=== PATIENT | female | born 1995 | race Caucasian/White ===

== ENCOUNTER 2023-09-20 18:29 | Emergency (ER) | payer OTHER ==
[2023-09-20 18:51] VITALS: BP 121/67; PULSE 84; RESP 18; TEMP 98; BMI 27.8
[2023-09-20] MEDS ORDERED: FLUORESCEIN NA 1 EA STRIP ONE (19:28)
[2023-09-20] MEDS: TETRACAINE 0.5% HCL 0.6ML DROPPER.BOTTLE OD ONE (19:43)
[2023-09-20] MEDS ORDERED: ERYTHROMYCIN 0.5% OPHTHALMIC OINTMENT 3.5 GM TUBE ONE (19:44)
[2023-09-20] MEDS: ERYTHROMYCIN 0.5% OPHTHALMIC OINTMENT 3.5 GM TUBE OS SCH (19:47)
== END 2023-09-20 19:47 | disposition home or self-care (01) ==
LOC: JERFT 18:29
DX: S05.02XA Injury of conjunctiva and corneal abrasion without foreign body, left eye, initial encounter (principal); W50.0XXA Accidental hit or strike by another person, initial encounter
CPT/HCPCS: 99283-25

== ENCOUNTER 2023-10-26 08:11 | Inpatient (IN) | payer OTHER ==
[2023-10-26 08:20] VITALS: BMI 26.5
[2023-10-26 09:14] LABS: BASO % 0.2 % (0-2.0); EOS % 0.1 % (0-4.5); HEMATOCRIT 41.9 % (32.4-45.2); LYMPH % 8.3 % (8-40); MCH 32.2 pg (25.7-33.7); MCHC 33.5 g/dl (32.0-36.0); MEAN CELL VOLUME 96.1 fl (80-96); MEAN PLT VOLUME 8.2 fl (7.5-11.1); MONO % 9.1 % (3.8-10.2); NEUT % 82.3 % (42.8-82.8); PLATELET COUNT 238 10^3/uL (134-434); RBC 4.36 M/mm3 (3.60-5.2); RDW 12.6 % (11.6-15.6); WHITE BLOOD COUNT 17.6 K/mm3 (4.0-10.0)
[2023-10-26 09:21] LABS: INR 1.2 (0.83-1.09); PROTHROMBIN TIME (PATIENT) 13.5 SEC (9.7-13.0)
[2023-10-26 09:24] LABS: ACTIVATED PTT 27.5 SECONDS (25.2-36.5)
[2023-10-26 09:38] LABS: POTASSIUM 3.7 mmol/L (3.5-5.1)
[2023-10-26 09:39] LABS: CALCIUM 9.3 mg/dL (8.5-10.1)
[2023-10-26 09:40] LABS: ALBUMIN 3.3 g/dl (3.4-5.0); BLOOD UREA NITROGEN 7.5 mg/dL (7-18)
[2023-10-26 09:40] LABS: VENOUS BASE EXCESS -2.2 mmol/L (-2-2); VENOUS O2 SATURATION 69.6 % (70-80); VENOUS PH 7.402 (7.310-7.410)
[2023-10-26 09:43] LABS: CREATININE 0.6 mg/dL (0.55-1.3)
[2023-10-26 09:45] LABS: BILIRUBIN,TOTAL 0.7 mg/dL (0.2-1); TOT PROT 7.2 g/dl (6.4-8.2)
[2023-10-26 10:49] LABS: URINE APPEARANCE BLOODY; URINE COLOR RED
[2023-10-26 10:50] LABS: URINE BILIRUBIN 2+ (NEGATIVE); URINE GLUCOSE (UA) NEGATIVE (NEGATIVE); URINE PROTEIN 3+ (NEGATIVE)
[2023-10-26] MEDS: ACETAMINOPHEN 1000 MG/100 ML BAG IVPB ONE (10:51)
[2023-10-26] MEDS: VANCOMYCIN 1,000 MG in DEXTROSE 5%-WATER - 250 ML IVPB ONE (10:56)
[2023-10-26] MEDS ORDERED: VANCOMYCIN 1 GRAM (PRE-DOCKED) 1,000 MG/250 ML BAG IVPB ONE (11:03)
[2023-10-26] MEDS ORDERED: ACETAMINOPHEN INJECTION 100 ML IVPB ONE ×2 (11:03→19:41)
[2023-10-26] MEDS: PIPERACILLIN/TAZOB 3.375 GM 3.375 GM in DEXTROSE 5%-WATER - 50 ML IVPB SCH (15:28)
[2023-10-26] MEDS: LACTATED RINGERS SOLUTION 1,000 ML/1,000 ML INFUS.BAG IV SCH (17:06)
[2023-10-26] MEDS: DOXYCYCLINE HYCLATE 100 MG CAPSULE PO SCH (17:11)
[2023-10-26] MEDS ORDERED: FENTANYL CITRATE/PF 50 MCG/ML VIAL ONE ×4 (18:54→20:00)
[2023-10-26] MEDS ORDERED: PROPOFOL 20 ML ONE (18:55)
[2023-10-26] MEDS ORDERED: MIDAZOLAM HCL 2 MG/2 ML SINGLE DOSE VIAL ONE (18:55)
[2023-10-26] MEDS: ACETAMINOPHEN 1000 MG/100 ML BAG IVPB PRN (19:30)
[2023-10-26] MEDS ORDERED: oxyCODONE HCL 5 MG TABLET PO PRN (19:32)
[2023-10-26] MEDS ORDERED: ONDANSETRON 4 MG/2 ML VIAL IVPUSH PRN ×2 (19:32→19:54)
[2023-10-26] MEDS ORDERED: LACTATED RINGERS SOLUTION 1,000 ML IV SCH (19:45)
[2023-10-26] MEDS: LACTATED RINGERS SOLUTION 1,000 ML IV SCH (20:03)
[2023-10-26 22:12] VITALS: RESP 18
[2023-10-27] MEDS: oxyCODONE HCL 5 MG TABLET PO PRN (00:38)
[2023-10-27] MEDS: PIPERACILLIN/TAZOB 3.375 GM 3.375 GM in DEXTROSE 5%-WATER - 50 ML IVPB SCH (02:06)
[2023-10-27 07:49] LABS: BASO % 0.1 % (0-2.0); EOS % 0.9 % (0-4.5); HEMATOCRIT 35.3 % (32.4-45.2); HEMOGLOBIN 11.8 GM/dL (10.7-15.3); LYMPH % 13.5 % (8-40); MCH 32.2 pg (25.7-33.7); MCHC 33.5 g/dl (32.0-36.0); MEAN CELL VOLUME 96.2 fl (80-96); MEAN PLT VOLUME 8.5 fl (7.5-11.1); MONO % 9.4 % (3.8-10.2); NEUT % 76.1 % (42.8-82.8); PLATELET COUNT 209 10^3/uL (134-434); RBC 3.67 M/mm3 (3.60-5.2); RDW 12.4 % (11.6-15.6); WHITE BLOOD COUNT 12.8 K/mm3 (4.0-10.0)
[2023-10-27 07:57] LABS: POTASSIUM 3.7 mmol/L (3.5-5.1)
[2023-10-27 08:02] LABS: CALCIUM 8.2 mg/dL (8.5-10.1)
[2023-10-27 08:03] LABS: MAGNESIUM 1.7 mg/dL (1.8-2.4)
[2023-10-27 08:06] LABS: CREATININE 0.5 mg/dL (0.55-1.3)
[2023-10-27 08:07] LABS: BILIRUBIN,TOTAL 0.6 mg/dL (0.2-1)
[2023-10-27 08:08] LABS: TOT PROT 5.3 g/dl (6.4-8.2)
[2023-10-27 08:10] LABS: ALBUMIN 2.3 g/dl (3.4-5.0)
[2023-10-27] MEDS: DOXYCYCLINE HYCLATE 100 MG CAPSULE PO SCH (09:52)
[2023-10-27 14:52] VITALS: BP 104/62; PULSE 90; TEMP 98.6
== END 2023-10-27 18:27 | disposition home or self-care (01) | DRG 383 ==
LOC: JER 08:11 → JERBED 11:08 → J8W 13:23
PROVIDERS: ADMIT Internal Medicine; ATTEND Nurse Practitioner Family
PROC: 0X940ZZ Drainage of Right Axilla, Open Approach (ICD-10-PCS; principal; 2023-10-26 16:30)
DX: L02.411 Cutaneous abscess of right axilla (principal); L03.111 Cellulitis of right axilla
CPT/HCPCS: 36415; 80053; 81003; 82803; 83605; 83735; 84100; 84703; 85025; 85610; 85730; 86850; 86900; 86901; 87040; 87070; 87075; 87086; 87186; 87205; 93005; 93010; 94760; 99285-25; J0131

== ENCOUNTER 2024-02-26 22:26 | Emergency (ER) | payer OTHER ==
[2024-02-26 22:34] VITALS: BP 111/73; PULSE 90; RESP 18; TEMP 98.3; BMI 26.3
[2024-02-27] MEDS: SODIUM CHLORIDE 0.9% 500 ML INFUS.BAG IV ONE (00:16)
[2024-02-27 00:18] LABS: BASO % 0.5 % (0-2.0); EOS % 1.2 % (0-4.5); HEMATOCRIT 42.7 % (32.4-45.2); HEMOGLOBIN 14.4 GM/dL (10.7-15.3); LYMPH % 27.2 % (8-40); MCH 32.6 pg (25.7-33.7); MCHC 33.8 g/dl (32.0-36.0); MEAN CELL VOLUME 96.6 fl (80-96); MEAN PLT VOLUME 8.5 fl (7.5-11.1); MONO % 9.4 % (3.8-10.2); NEUT % 61.7 % (42.8-82.8); PLATELET COUNT 201 10^3/uL (134-434); RBC 4.42 M/mm3 (3.60-5.2); RDW 12.9 % (11.6-15.6); WHITE BLOOD COUNT 8.8 K/mm3 (4.0-10.0)
[2024-02-27 00:38] LABS: POTASSIUM 3.9 mmol/L (3.5-5.1)
[2024-02-27 00:41] LABS: CALCIUM 9.7 mg/dL (8.5-10.1)
[2024-02-27 00:42] LABS: ALBUMIN 4.1 g/dl (3.4-5.0); BLOOD UREA NITROGEN 16.1 mg/dL (7-18)
[2024-02-27 00:45] LABS: CREATININE 0.6 mg/dL (0.55-1.3)
[2024-02-27 00:47] LABS: BILIRUBIN,TOTAL 0.7 mg/dL (0.2-1); TOT PROT 7.6 g/dl (6.4-8.2)
[2024-02-27] MEDS ORDERED: CEFTRIAXONE 1 GM/50 ML BAG ONE (00:50)
[2024-02-27] MEDS: CEFTRIAXONE 1 GM in DEXTROSE 5%-WATER - 50 ML IVPB ONE (00:53)
== END 2024-02-27 01:14 | disposition home or self-care (01) ==
LOC: JERFT 22:26 → JER 22:26 → JERFT 02-27 01:14
DX: L03.211 Cellulitis of face (principal)
CPT/HCPCS: 36415; 80053; 84703; 85025; 99284-25